=== PATIENT | female | born 1955 | race American Indian/Alaskan Native ===

== ENCOUNTER 2019-01-31 09:50 | Emergency (ER) | payer SELFPAY ==
[2019-01-31 10:47] LABS: Basophils # (Auto) 0.1 K/mm3 (0.0-0.1); Basophils % (Auto) 0.7 % (0.0-1.8); Eosinophils % (Auto) 0.2 % (0.0-4.3); Hematocrit 42.9 % (30.3-42.9); Hemoglobin 14.4 gm/dl (10.1-14.3); Lymphocytes # (Auto) 2.4 K/mm3 (1.2-5.4); Lymphocytes % (Auto) 13.3 % (13.4-35.0); Mean Corpuscular HGB Conc 34 % (30-34); Mean Corpuscular Volume 87 fl (79-97); Monocytes # (Auto) 1.1 K/mm3 (0.0-0.8); Monocytes % (Auto) 6.4 % (0.0-7.3); Platelet Count 219 K/mm3 (140-440); Red Blood Count 4.95 M/mm3 (3.65-5.03); Red Cell Distribution Width 13.2 % (13.2-15.2)
[2019-01-31] MEDS ORDERED: ONDANSETRON 4 MG/2 ML INJ IV ONE (10:59)
[2019-01-31] MEDS ORDERED: SODIUM CHLORIDE 0.9% 1000 ML 1,000 ML IV ONE (10:59)
[2019-01-31] MEDS ORDERED: FAMOTIDINE 20 MG/2 ML INJ IV ONE (10:59)
[2019-01-31 11:20] LABS: Alanine Aminotransferase 12 units/L (7-56); BUN/Creatinine Ratio 14; Blood Urea Nitrogen 10 mg/dL (7-17); Calcium 10.4 mg/dL (8.4-10.2); Hemolysis Index 15
[2019-01-31 12:49] LABS: Bilirubin,Urine NEG (Negative); Blood,Urine NEG (Negative); Color,Urine Yellow (Yellow)
[2019-01-31 13:09] LABS: Bacteria,Urine 1+ /HPF (Negative); Calcium Oxalate Crystals,Urine 1+
--- NOTE | 2019-01-31 13:29 | Emergency Department Report ---
ED General Adult HPI - General Chief complaint: Nausea/Vomiting/Diarrhea Stated complaint: DIZZY/VOMITING/NAUSEA Time Seen by Provider: 01/31/19 10:53 Source: patient Mode of arrival: Ambulatory Limitations: No Limitations - History of Present Illness Initial comments: 63-year-old Chhaya female who is complaining of nausea vomiting dizziness when she stands. Patient states that approximate 5 days ago she started having some vertigo-like symptoms which she has had in the past however she no longer feels dizzy when she turns her head is only when she stands and she is continued to have vomiting. Patient states her symptoms no longer feel like her vertigo. Patient denies fevers neck stiffness sore throat. Patient does state that she has a vaginal discharge and believes she may have a yeast infection. Patient's has some mild urinary frequency. - Related Data Previous Rx's Medication Instructions Recorded Last Taken Type Ibuprofen [Motrin 400 MG tab] 400 mg PO Q8H PRN #30 tablet 12/24/14 Unknown Rx Fluconazole [Diflucan TAB] 150 mg PO ONCE #1 tablet 01/31/19 Unknown Rx Nitrofurantoin [place]/M-Cryst 100 mg PO Q12HR #14 capsule 01/31/19 Unknown Rx [Macrobid CAP] Ondansetron [Zofran Odt] 4 mg PO Q8HR #10 tab.rapdis 01/31/19 Unknown Rx Allergies Allergy/AdvReac Type Severity Reaction Status Date / Time acetaminophen Allergy Vomiting Verified 12/24/14 09:49 [From Darvocet-N] aspirin Allergy Rash Verified 12/24/14 09:49 propoxyphene HCl Allergy Vomiting Verified 12/24/14 09:49 [From Darvon] propoxyphene napsylate Allergy Vomiting Verified 12/24/14 09:49 [From Darvocet-N] Sulfa (Sulfonamide Allergy Vomiting Verified 12/24/14 09:49 Antibiotics) ED Review of Systems ROS: Stated complaint: DIZZY/VOMITING/NAUSEA Other details as noted in HPI Comment: All other systems reviewed and negative ED Past Medical Hx - Past Medical History Previous Medical History?: Yes Hx Hypertension: Yes - Surgical History Past Surgical History?: Yes Additional Surgical History: c sect x 2, tubal, hysterectomy - Social History Smoking Status: Never Smoker Substance Use Type: None - Medications Home Medications: Home Medications Medication Instructions Recorded Confirmed Last Taken Type Ibuprofen [Motrin 400 MG tab] 400 mg PO Q8H PRN #30 tablet 12/24/14 Unknown Rx Fluconazole [Diflucan TAB] 150 mg PO ONCE #1 tablet 01/31/19 Unknown Rx Nitrofurantoin [place]/M-Cryst 100 mg PO Q12HR #14 capsule 01/31/19 Unknown Rx [Macrobid CAP] Ondansetron [Zofran Odt] 4 mg PO Q8HR #10 tab.rapdis 01/31/19 Unknown Rx ED Physical Exam - General Limitations: No Limitations General appearance: alert, in no apparent distress - Head Head exam: Present: atraumatic, normocephalic - Eye Eye exam: Present: normal appearance - ENT ENT exam: Present: normal exam, mucous membranes moist - Neck Neck exam: Present: normal inspection - Respiratory Respiratory exam: Present: normal lung sounds bilaterally. Absent: respiratory distress, wheezes, rales, rhonchi - Cardiovascular Cardiovascular Exam: Present: regular rate, normal rhythm. Absent: systolic murmur, diastolic murmur, rubs, gallop - GI/Abdominal GI/Abdominal exam: Present: soft, normal bowel sounds. Absent: distended, tenderness, guarding, rebound - Extremities Exam Extremities exam: Present: normal inspection - Back Exam Back exam: Present: normal inspection - Neurological Exam Neurological exam: Present: alert, oriented X3 - Psychiatric Psychiatric exam: Present: normal affect, normal mood - Skin Skin exam: Present: warm, dry, intact, normal color. Absent: rash ED Course Vital Signs 01/31/19 10:08 Temperature 98.5 F Pulse Rate 73 Respiratory 16 Rate Blood Pressure 159/95 O2 Sat by Pulse 99 Oximetry ED Medical Decision Making - Lab Data Result diagrams: 01/31/19 10:27 01/31/19 10:27 Lab Results 01/31/19 01/31/19 01/31/19 Range/Units 10:27 10:27 11:27 WBC 17.8 H (4.5-11.0) K/mm3 RBC 4.95 (3.65-5.03) M/mm3 Hgb 14.4 H (10.1-14.3) gm/dl Hct 42.9 (30.3-42.9) % MCV 87 (79-97) fl MCH 29 (28-32) pg MCHC 34 (30-34) % RDW 13.2 (13.2-15.2) % Plt Count 219 (140-440) K/mm3 Lymph % (Auto) 13.3 L (13.4-35.0) % [place] % (Auto) 6.4 (0.0-7.3) % Eos % (Auto) 0.2 (0.0-4.3) % Baso % (Auto) 0.7 (0.0-1.8) % Lymph # 2.4 (1.2-5.4) K/mm3 [place] # 1.1 H (0.0-0.8) K/mm3 Eos # 0.0 (0.0-0.4) K/mm3 Baso # 0.1 (0.0-0.1) K/mm3 Seg Neutrophils % 79.4 H (40.0-70.0) % Seg Neutrophils # 14.2 H (1.8-7.7) K/mm3 Sodium 144 (137-145) mmol/L Potassium 3.8 (3.6-5.0) mmol/L Chloride 103.5 (98-107) mmol/L Carbon Dioxide 24 (22-30) mmol/L Anion Gap 20 mmol/L BUN 10 (7-17) mg/dL Creatinine 0.7 (0.7-1.2) mg/dL Estimated GFR > 60 ml/min BUN/Creatinine Ratio 14 % Glucose 123 H (65-100) mg/dL Calcium 10.4 H (8.4-10.2) mg/dL Total Bilirubin 0.50 (0.1-1.2) mg/dL AST 18 (5-40) units/L ALT 12 (7-56) units/L Alkaline Phosphatase 92 (35-129) units/L Total Protein 9.0 H (6.3-8.2) g/dL Albumin 5.0 (3.9-5) g/dL Albumin/Globulin Ratio 1.3 % Lipase (13-60) units/L Urine Color Yellow (Yellow) Urine Turbidity Slightly-cloudy (Clear) Urine pH 5.0 (5.0-7.0) Ur Specific [place] 1.023 (1.003-1.030) Urine Protein 30 mg/dl (Negative) mg/dL Urine Glucose (UA) Neg (Negative) mg/dL Urine Ketones 20 (Negative) mg/dL Urine Blood Neg (Negative) Urine Nitrite Neg (Negative) Urine Bilirubin Neg (Negative) Urine Urobilinogen 4.0 (<2.0) mg/dL Ur Leukocyte Esterase Mod (Negative) Urine WBC (Auto) 5.0 (0.0-6.0) /HPF Urine RBC (Auto) 1.0 (0.0-6.0) /HPF Urine Bacteria (Auto) 1+ (Negative) /HPF Calcium Oxalate [place] 1+ 01/31/19 Range/Units Unknown WBC (4.5-11.0) K/mm3 RBC (3.65-5.03) M/mm3 Hgb (10.1-14.3) gm/dl Hct (30.3-42.9) % MCV (79-97) fl MCH (28-32) pg MCHC (30-34) % RDW (13.2-15.2) % Plt Count (140-440) K/mm3 Lymph % (Auto) (13.4-35.0) % [place] % (Auto) (0.0-7.3) % Eos % (Auto) (0.0-4.3) % Baso % (Auto) (0.0-1.8) % Lymph # (1.2-5.4) K/mm3 [place] # (0.0-0.8) K/mm3 Eos # (0.0-0.4) K/mm3 Baso # (0.0-0.1) K/mm3 Seg Neutrophils % (40.0-70.0) % Seg Neutrophils # (1.8-7.7) K/mm3 Sodium (137-145) mmol/L Potassium (3.6-5.0) mmol/L Chloride (98-107) mmol/L Carbon Dioxide (22-30) mmol/L Anion Gap mmol/L BUN (7-17) mg/dL Creatinine (0.7-1.2) mg/dL Estimated GFR ml/min BUN/Creatinine Ratio % Glucose (65-100) mg/dL Calcium (8.4-10.2) mg/dL Total Bilirubin (0.1-1.2) mg/dL AST (5-40) units/L ALT (7-56) units/L Alkaline Phosphatase (35-129) units/L Total Protein (6.3-8.2) g/dL Albumin (3.9-5) g/dL Albumin/Globulin Ratio % Lipase 33 (13-60) units/L Urine Color (Yellow) Urine Turbidity (Clear) Urine pH (5.0-7.0) Ur Specific [place] (1.003-1.030) Urine Protein (Negative) mg/dL Urine Glucose (UA) (Negative) mg/dL Urine Ketones (Negative) mg/dL Urine Blood (Negative) Urine Nitrite (Negative) Urine Bilirubin (Negative) Urine Urobilinogen (<2.0) mg/dL Ur Leukocyte Esterase (Negative) Urine WBC (Auto) (0.0-6.0) /HPF Urine RBC (Auto) (0.0-6.0) /HPF Urine Bacteria (Auto) (Negative) /HPF Calcium Oxalate Crystal - Medical Decision Making She was hydrated and given antiemetics and she is feeling much improved at the end of the patient's ER visit. In evaluating the patient's laboratory studies she does appear to be hemoconcentrated. Patient was vomiting at the time that the labs were drawn and her white count elevation likely secondary to emargination. Patient has a mild UTI be treated. Patient also has some ketonuria which supports the fact that her dizziness is no longer likely from her vertigo is more likely from dehydration. Critical care attestation.: If time is entered above; I have spent that time in minutes in the direct care of this critically ill patient, excluding procedure time. ED Disposition Clinical Impression: Mild dehydration UTI (urinary tract infection) Qualifiers: Urinary tract infection type: acute cystitis Hematuria presence: without hematuria Qualified Code(s): N30.00 - Acute cystitis without hematuria Nausea & vomiting Qualifiers: Vomiting type: unspecified Vomiting Intractability: non-intractable Qualified Code(s): R11.2 - Nausea with vomiting, unspecified Disposition: DC-01 TO HOME OR SELFCARE Is pt being admited?: No Does the pt Need Aspirin: No Condition: Stable Instructions: Dehydration (ED), Urinary Tract Infection in Women (ED), Fluconazole (By mouth) Referrals: PRIMARY CARE, [Primary Care Provider] - 3-5 Days Time of Disposition: 13:28
[2019-01-31 13:46] VITALS: BP 188/87
== END 2019-01-31 13:47 | disposition home or self-care (01) ==
LOC: ED 09:50
DX: N39.0 Urinary tract infection, site not specified (principal); E86.0 Dehydration; R11.2 Nausea with vomiting, unspecified
CPT/HCPCS: 36415; 80053; 81001; 83690; 85025; 96361; 96374; 96375; 99283; J2405; J7030

== ENCOUNTER 2019-05-18 07:20 | Emergency (ER) | payer OTHER ==
[2019-05-18] MEDS ORDERED: PROMETHAZINE 25 MG TAB PO ONE (08:49)
--- NOTE | 2019-05-18 09:12 | Emergency Department Report ---
{null, ED General Adult HPI - General Chief complaint: Nausea/Vomiting/Diarrhea Stated complaint: N/V Source: patient Mode of arrival: Ambulatory Limitations: No Limitations - History of Present Illness Initial comments: This is a pleasant 63-year-old female who presents the emergency department with a chief complaint that her vertigo is acting up. She reports a history of vertigo that will be intermittent and states this has been ongoing for the past 3 days. She states the dizziness is described as the room spinning around her and usually worse with certain movements. She also reports this is causing her to have nausea and vomiting and she has not been eating much since this started. She also reports an unassociated left-sided lower back pain with no radiation. Pain is worse with movement. She denies any associated fever, chills, night sweats, headache, dizziness, blurry vision, chest pain, shortness of breath, cough, saddle anesthesia, urinary or bowel incontinence, urinary retention, dysuria, frequency, urgency, hematuria or any other associated symptoms. - Related Data Previous Rx's Medication Instructions Recorded Last Taken Type Ibuprofen [Motrin 400 MG tab] 400 mg PO Q8H PRN #30 tablet 12/24/14 Unknown Rx Fluconazole [Diflucan TAB] 150 mg PO ONCE #1 tablet 01/31/19 Unknown Rx Nitrofurantoin [place]/M-Cryst 100 mg PO Q12HR #14 capsule 01/31/19 Unknown Rx [Macrobid CAP] Ondansetron [Zofran Odt] 4 mg PO Q8HR #10 tab.rapdis 01/31/19 Unknown Rx Ciprofloxacin HCl [Ciprofloxacin 500 mg PO BID #14 tablet 05/18/19 Unknown Rx TAB] Promethazine [Phenergan] 25 mg PO Q6HR PRN #30 tab 05/18/19 Unknown Rx Allergies Allergy/AdvReac Type Severity Reaction Status Date / Time acetaminophen Allergy Vomiting Verified 12/24/14 09:49 [From Darvocet-N] aspirin Allergy Rash Verified 12/24/14 09:49 propoxyphene HCl Allergy Vomiting Verified 12/24/14 09:49 [From Darvon] propoxyphene napsylate Allergy Vomiting Verified 12/24/14 09:49 [From Darvocet-N] Sulfa (Sulfonamide Allergy Vomiting Verified 12/24/14 09:49 Antibiotics) ED Review of Systems ROS: Stated complaint: N/V Other details as noted in HPI Comment: All other systems reviewed and negative Constitutional: denies: chills, fever Eyes: denies: eye pain, eye discharge, vision change ENT: denies: ear pain, throat pain Respiratory: denies: cough, shortness of breath, wheezing Cardiovascular: denies: chest pain, palpitations Endocrine: no symptoms reported Gastrointestinal: denies: abdominal pain, nausea, diarrhea Genitourinary: denies: urgency, dysuria, discharge Musculoskeletal: denies: back pain, joint swelling, arthralgia Skin: denies: rash, lesions Neurological: denies: headache, weakness, paresthesias Psychiatric: denies: anxiety, depression Hematological/Lymphatic: denies: easy bleeding, easy bruising ED Past Medical Hx - Past Medical History Previous Medical History?: Yes Hx Hypertension: Yes - Surgical History Past Surgical History?: Yes Additional Surgical History: c sect x 2, tubal, hysterectomy - Social History Smoking Status: Never Smoker Substance Use Type: None - Medications Home Medications: Home Medications Medication Instructions Recorded Confirmed Last Taken Type Ibuprofen [Motrin 400 MG tab] 400 mg PO Q8H PRN #30 tablet 12/24/14 Unknown Rx Fluconazole [Diflucan TAB] 150 mg PO ONCE #1 tablet 01/31/19 Unknown Rx Nitrofurantoin [place]/M-Cryst 100 mg PO Q12HR #14 capsule 01/31/19 Unknown Rx [Macrobid CAP] Ondansetron [Zofran Odt] 4 mg PO Q8HR #10 tab.rapdis 01/31/19 Unknown Rx Ciprofloxacin HCl [Ciprofloxacin 500 mg PO BID #14 tablet 05/18/19 Unknown Rx TAB] Promethazine [Phenergan] 25 mg PO Q6HR PRN #30 tab 05/18/19 Unknown Rx ED Physical Exam - General Limitations: No Limitations General appearance: alert, in no apparent distress - Head Head exam: Present: atraumatic, normocephalic - Eye Eye exam: Present: normal appearance, PERRL, EOMI Pupils: Present: normal accommodation - ENT ENT exam: Present: normal exam, normal orophraynx, mucous membranes moist, normal external ear exam, other (When I lay the patient flat and turned her head to the left she felt symptoms of vertigo when I returned her to a seated position the symptoms resolved) - Neck Neck exam: Present: normal inspection, full ROM. Absent: tenderness, meningismus - Respiratory Respiratory exam: Present: normal lung sounds bilaterally. Absent: respiratory distress, wheezes, rales, rhonchi, stridor, chest wall tenderness - Cardiovascular Cardiovascular Exam: Present: regular rate, normal rhythm, normal heart sounds. Absent: systolic murmur, diastolic murmur, rubs, gallop - GI/Abdominal GI/Abdominal exam: Present: soft, normal bowel sounds. Absent: distended, tenderness, guarding, rebound, rigid - Extremities Exam Extremities exam: Present: normal inspection, full ROM, normal capillary refill. Absent: tenderness, calf tenderness (negative vladimir sign bilaterally ) - Back Exam Back exam: Present: normal inspection, full ROM. Absent: tenderness, CVA tenderness (R), CVA tenderness (L) - Neurological Exam Neurological exam: Present: alert, oriented X3, normal gait - Psychiatric Psychiatric exam: Present: normal affect, normal mood - Skin Skin exam: Present: warm, dry, intact, normal color. Absent: rash ED Course Vital Signs 05/18/19 07:24 Temperature 98.9 F Pulse Rate 113 H Respiratory 20 Rate Blood Pressure 158/95 O2 Sat by Pulse 98 Oximetry ED Medical Decision Making - Lab Data Result diagrams: 05/18/19 09:05 05/18/19 09:05 Lab Results 05/18/19 05/18/19 05/18/19 Range/Units 09:05 09:05 09:28 WBC 16.6 H (4.5-11.0) K/mm3 RBC 4.59 (3.65-5.03) M/mm3 Hgb 13.1 (10.1-14.3) gm/dl Hct 39.6 (30.3-42.9) % MCV 86 (79-97) fl MCH 29 (28-32) pg MCHC 33 (30-34) % RDW 13.5 (13.2-15.2) % Plt Count 234 (140-440) K/mm3 Lymph % (Auto) 15.2 (13.4-35.0) % [place] % (Auto) 7.0 (0.0-7.3) % Eos % (Auto) 0.1 (0.0-4.3) % Baso % (Auto) 0.5 (0.0-1.8) % Lymph # 2.5 (1.2-5.4) K/mm3 [place] # 1.2 H (0.0-0.8) K/mm3 Eos # 0.0 (0.0-0.4) K/mm3 Baso # 0.1 (0.0-0.1) K/mm3 Seg Neutrophils % 77.2 H (40.0-70.0) % Seg Neutrophils # 12.8 H (1.8-7.7) K/mm3 Sodium 142 (137-145) mmol/L Potassium 4.1 (3.6-5.0) mmol/L Chloride 102.0 (98-107) mmol/L Carbon Dioxide 21 L (22-30) mmol/L Anion Gap 23 mmol/L BUN 10 (7-17) mg/dL Creatinine 0.7 (0.7-1.2) mg/dL Estimated GFR > 60 ml/min BUN/Creatinine Ratio 14 % Glucose 113 H (65-100) mg/dL Calcium 10.0 (8.4-10.2) mg/dL Total Bilirubin 0.60 (0.1-1.2) mg/dL AST 20 (5-40) units/L ALT 11 (7-56) units/L Alkaline Phosphatase 81 (35-129) units/L Total Protein 8.5 H (6.3-8.2) g/dL Albumin 4.6 (3.9-5) g/dL Albumin/Globulin Ratio 1.2 % Urine Color Yellow (Yellow) Urine Turbidity Slightly-cloudy (Clear) Urine pH 6.0 (5.0-7.0) Ur Specific [place] 1.020 (1.003-1.030) Urine Protein 30 mg/dl (Negative) mg/dL Urine Glucose (UA) Neg (Negative) mg/dL Urine Ketones 20 (Negative) mg/dL Urine Blood Neg (Negative) Urine Nitrite Neg (Negative) Urine Bilirubin Neg (Negative) Urine Urobilinogen 4.0 (<2.0) mg/dL Ur Leukocyte Esterase Lg (Negative) Urine WBC (Auto) 57.0 H (0.0-6.0) /HPF Urine RBC (Auto) 2.0 (0.0-6.0) /HPF U Epithel Cells (Auto) 1.0 (0-13.0) /HPF Urine Mucus 3+ /HPF - Medical Decision Making Patient's labs returned showing elevated white blood cell count but were other ho relatively normal. Urine was consistent with urinary tract infection. Due to the fact the patient did have some pain in the left side of her lower back although no significant CVA tenderness we will treat her for pyelonephritis. We did give an injection of Rocephin in the emergency department and will send her home with Cipro Floxin to treat a suspected complicated UTI. Patient had no colicky pain and again no significant CVA tenderness making my suspicion of an infected kidney stone less likely. Her symptoms of vertigo resolved in the emergency department. I will send her home with promethazine since this seemed to help with her vertigo symptoms. I suspect this is likely consistent with benign paroxysmal positional vertigo and have a low suspicion of a posterior stroke due to the easily reproducible symptoms. Patient had no ataxia on her exam with a normal [id number] and [id number] and normal steady gait when ambulating. I recommended outpatient follow-up with her primary care doctor. Initially when she arrived to the emergency department her heart rate was elev ated at 113 however when I rechecked it it was 68 with a pulse ox of 100% on room air which is normal. She had no fever. She was instructed to return to emerge department any change or worsening symptoms. She verbalized understanding of the diagnosis, treatment plan and follow-up instructions and all of her questions were answered. - Differential Diagnosis BPPV, pyelonehpritis, muscel strain, sepsis Critical care attestation.: If time is entered above; I have spent that time in minutes in the direct care of this critically ill patient, excluding procedure time. ED Disposition Clinical Impression: Acute pyelonephritis BPPV (benign paroxysmal positional vertigo) Qualifiers: Laterality: left Qualified Code(s): H81.12 - Benign paroxysmal vertigo, left ear Disposition: DC-01 TO HOME OR SELFCARE Is pt being admited?: No Condition: Stable Instructions: Benign Paroxysmal Positional Vertigo (ED), Urinary Tract Infect ion in Women (ED) Prescriptions: Ciprofloxacin HCl [Ciprofloxacin TAB] 500 mg PO BID #14 tablet Promethazine [Phenergan] 25 mg PO Q6HR PRN #30 tab PRN Reason: dizziness Referrals: PRIMARY CARE, [Primary Care Provider] - 3-5 Days Forms: Work/School Release Form(ED) Time of Disposition: 10:42 }
[2019-05-18 09:37] LABS: Basophils # (Auto) 0.1 K/mm3 (0.0-0.1); Basophils % (Auto) 0.5 % (0.0-1.8); Eosinophils % (Auto) 0.1 % (0.0-4.3); Hematocrit 39.6 % (30.3-42.9); Hemoglobin 13.1 gm/dl (10.1-14.3); Lymphocytes # (Auto) 2.5 K/mm3 (1.2-5.4); Lymphocytes % (Auto) 15.2 % (13.4-35.0); Mean Corpuscular HGB Conc 33 % (30-34); Mean Corpuscular Volume 86 fl (79-97); Monocytes # (Auto) 1.2 K/mm3 (0.0-0.8); Platelet Count 234 K/mm3 (140-440); Red Blood Count 4.59 M/mm3 (3.65-5.03); Red Cell Distribution Width 13.5 % (13.2-15.2)
[2019-05-18 09:49] LABS: Bilirubin,Urine NEG (Negative); Blood,Urine NEG (Negative); Color,Urine Yellow (Yellow); Mucus,Urine 3+ /HPF
[2019-05-18 10:00] LABS: Alanine Aminotransferase 11 units/L (7-56); Albumin 4.6 g/dL (3.9-5); BUN/Creatinine Ratio 14; Blood Urea Nitrogen 10 mg/dL (7-17); Hemolysis Index 18
[2019-05-18] MEDS ORDERED: cefTRIAXone/NS 2 GM/100 ML 2 GM/100 ML BAG IV ONE (10:12)
[2019-05-18] MEDS ORDERED: LIDOCAINE-MPF (1%) 10 MG/1 ML VIAL 5 ML INFILTRATI ONE (10:16)
[2019-05-18 10:37] VITALS: BP 159/87
== END 2019-05-18 10:48 | disposition home or self-care (01) ==
LOC: ED 07:20
DX: N10 Acute pyelonephritis (principal); H81.10 Benign paroxysmal vertigo, unspecified ear; I10 Essential (primary) hypertension; Z79.899 Other long term (current) drug therapy; Z79.1 Long term (current) use of non-steroidal anti-inflammatories (NSAID); Z88.8 Allergy status to other drugs, medicaments and biological substances; Z98.890 Other specified postprocedural states; Z98.51 Tubal ligation status; Z90.710 Acquired absence of both cervix and uterus
CPT/HCPCS: 36415; 80053; 81001; 85025; 87086; 96372; 99283; J0696; Q0169

== ENCOUNTER 2021-07-12 08:28 | Emergency (ER) | payer MEDICARE ==
[2021-07-12 09:03] VITALS: BP 157/90
[2021-07-12] MEDS ORDERED: ONDANSETRON 4 MG ODT TAB PO ONE (09:03)
[2021-07-12] MEDS ORDERED: DEXAMETHASONE 4 MG TAB PO ONE (09:03)
[2021-07-12] MEDS ORDERED: KETOROLAC 10 MG TAB PO ONE (09:03)
[2021-07-12] MEDS ORDERED: CYCLOBENZAPRINE 10 MG TAB PO ONE (09:03)
[2021-07-12] MEDS ORDERED: oxyCODONE /ACETAMINOPHEN 5-325MG TAB PO ONE (09:04)
--- NOTE | 2021-07-12 10:05 | Emergency Department Report ---
ED Back Pain/Injury HPI - General Chief Complaint: Back Pain/Injury Stated Complaint: BACK PAIN Time Seen by Provider: 07/12/21 09:01 Source: patient Limitations: No Limitations - History of Present Illness Initial Comments: 65 yo black female with pmh of chronic back pain presents to the ed for evaluation of lower back pain. She states that she always has lower back pain, but the past 3 days, the pain has been significantly worse with a low grade fever on Thursday. She denies injury, trauma, abdominal pain, n/v, dysuria, and vaginal discharge. -: Gradual, days(s) (5) Similar Symptoms Previously: Yes Place: home Radiation: none Severity: severe Severity scale (0 -10): 10 Quality: aching Consistency: constant Improves With: none Worsens With: none Associated Symptoms: denies other symptoms - Related Data Previous Rx's Medication Instructions Recorded Last Taken Type Ibuprofen [Motrin 400 MG tab] 400 mg PO Q8H PRN #30 tablet 12/24/14 Unknown Rx Fluconazole (Nf) [Diflucan TAB] 150 mg PO ONCE #1 tablet 01/31/19 Unknown Rx Nitrofurantoin Benson/M-Cryst 100 mg PO Q12HR #14 capsule 01/31/19 Unknown Rx [Macrobid CAP] Ondansetron [Zofran Odt] 4 mg PO Q8HR #10 tab.rapdis 01/31/19 Unknown Rx Ciprofloxacin HCl [Ciprofloxacin 500 mg PO BID #14 tablet 05/18/19 Unknown Rx TAB] Promethazine [Phenergan] 25 mg PO Q6HR PRN #30 tab 05/18/19 Unknown Rx Cyclobenzaprine [Flexeril] 10 mg PO TID PRN #21 tab 07/12/21 Unknown Rx Lidocaine [Lidoderm] 1 each TP DAILY #10 patch 07/12/21 Unknown Rx Naproxen [Naprosyn] 500 mg PO BID #14 tab 07/12/21 Unknown Rx cephALEXin [Keflex] 500 mg PO Q12HR #14 cap 07/12/21 Unknown Rx Allergies Allergy/AdvReac Type Severity Reaction Status Date / Time acetaminophen Allergy Vomiting Verified 12/24/14 09:49 [From Darvocet-N] aspirin Allergy Rash Verified 12/24/14 09:49 propoxyphene HCl Allergy Vomiting Verified 12/24/14 09:49 [From Darvon] propoxyphene napsylate Allergy Vomiting Verified 12/24/14 09:49 [From Darvocet-N] Sulfa (Sulfonamide Allergy Vomiting Verified 12/24/14 09:49 Antibiotics) ED Review of Systems ROS: Stated complaint: BACK PAIN Other details as noted in HPI Comment: All other systems reviewed and negative Constitutional: fever. denies: chills Respiratory: denies: shortness of breath Cardiovascular: denies: chest pain, palpitations Gastrointestinal: denies: abdominal pain, nausea, vomiting, diarrhea, hematemesis, melena, hematochezia Genitourinary: denies: urgency, dysuria, frequency, hematuria, discharge Musculoskeletal: back pain Skin: denies: rash, lesions Neurological: denies: headache, weakness, numbness ED Past Medical Hx - Past Medical History Hx Hypertension: Yes - Surgical History Additional Surgical History: c sect x 2, tubal, hysterectomy - Social History Smoking Status: Never Smoker Substance Use Type: None - Medications Home Medications: Home Medications Medication Instructions Recorded Confirmed Last Taken Type Ibuprofen [Motrin 400 MG tab] 400 mg PO Q8H PRN #30 tablet 12/24/14 Unknown Rx Fluconazole (Nf) [Diflucan TAB] 150 mg PO ONCE #1 tablet 01/31/19 Unknown Rx Nitrofurantoin Benson/M-Cryst 100 mg PO Q12HR #14 capsule 01/31/19 Unknown Rx [Macrobid CAP] Ondansetron [Zofran Odt] 4 mg PO Q8HR #10 tab.rapdis 01/31/19 Unknown Rx Ciprofloxacin HCl [Ciprofloxacin 500 mg PO BID #14 tablet 05/18/19 Unknown Rx TAB] Promethazine [Phenergan] 25 mg PO Q6HR PRN #30 tab 05/18/19 Unknown Rx Cyclobenzaprine [Flexeril] 10 mg PO TID PRN #21 tab 07/12/21 Unknown Rx Lidocaine [Lidoderm] 1 each TP DAILY #10 patch 07/12/21 Unknown Rx Naproxen [Naprosyn] 500 mg PO BID #14 tab 07/12/21 Unknown Rx cephALEXin [Keflex] 500 mg PO Q12HR #14 cap 07/12/21 Unknown Rx ED Physical Exam - General Limitations: No Limitations General appearance: alert, in no apparent distress - Head Head exam: Present: atraumatic, normocephalic - Eye Eye exam: Present: normal appearance. Absent: conjunctival injection - Neck Neck exam: Present: normal inspection, full ROM. Absent: tenderness, lymphadenopathy - Respiratory Respiratory exam: Present: normal lung sounds bilaterally. Absent: respiratory distress, wheezes, rales, rhonchi, stridor, chest wall tenderness, accessory muscle use - Cardiovascular Cardiovascular Exam: Present: tachycardia, normal heart sounds - GI/Abdominal GI/Abdominal exam: Present: soft, normal bowel sounds. Absent: distended, tenderness, guarding, rebound, rigid - Extremities Exam Extremities exam: Present: normal inspection, normal capillary refill. Absent: pedal edema, joint swelling, calf tenderness - Back Exam Back exam: Present: normal inspection, tenderness (bilateral lower). Absent: CVA tenderness (R), CVA tenderness (L), vertebral tenderness - Neurological Exam Neurological exam: Present: alert, oriented X3 - Psychiatric Psychiatric exam: Present: normal affect, normal mood - Skin Skin exam: Present: warm, dry, intact, normal color ED Course Vital Signs 07/12/21 09:02 Temperature 99.3 F Pulse Rate 112 H Respiratory 18 Rate Blood Pressure 157/90 O2 Sat by Pulse 99 Oximetry ED Medical Decision Making - Medical Decision Making 65 yo black female with pmh of chronic back pain presents to the ed for evaluation of lower back pain. She states that she always has lower back pain, but the past 3 days, the pain has been significantly worse with a low grade fever on Thursday. She denies injury, trauma, abdominal pain, n/v, dysuria, and vaginal discharge. UA positive for UTI, and patient will be treated with 7 day coarse of Keflex along with lidoderm patch and flexeril for back pain. She is advised to take medications as prescribed and follow up with pcp if no improvement or worsening symptoms. She verbalized understanding of and agreement with plan of care. Critical care attestation.: If time is entered above; I have spent that time in minutes in the direct care of this critically ill patient, excluding procedure time. ED Disposition Clinical Impression: Back pain Qualifiers: Back pain location: low back pain Chronicity: chronic Back pain laterality: bilateral Sciatica presence: without sciatica Qualified Code(s): M54.50 - Low back pain, unspecified UTI (urinary tract infection) Qualifiers: Urinary tract infection type: acute cystitis Hematuria presence: without hematuria Qualified Code(s): N30.00 - Acute cystitis without hematuria Disposition: HOME / SELF CARE / HOMELESS Is pt being admited?: No Does the pt Need Aspirin: No Condition: Stable Instructions: Urinary Tract Infection, Adult, [id number], What You Need to Know About Chronic Back Pain, Chronic Back Pain, [id number] Additional Instructions: Take medications as prescribed. Follow-up with primary care provider if no improvement or worsening symptoms. Return to the emergency department as needed. Prescriptions: Cyclobenzaprine [Flexeril] 10 mg PO TID PRN #21 tab PRN Reason: Muscle Spasm cephALEXin [Keflex] 500 mg PO Q12HR #14 cap Lidocaine [Lidoderm] 1 each TP DAILY #10 patch Naproxen [Naprosyn] 500 mg PO BID #14 tab Referrals: LISA CH MD [Referring] - 3-5 Days Time of Disposition: 10:49
[2021-07-12 10:43] LABS: Bacteria,Urine 1+ /HPF (Negative); Bilirubin,Urine NEG (Negative); Blood,Urine NEG (Negative); Color,Urine Yellow (Yellow); Mucus,Urine 2+ /HPF
== END 2021-07-12 11:53 | disposition home or self-care (01) ==
LOC: ED 08:28
DX: M54.50 Low back pain, unspecified (principal); N39.0 Urinary tract infection, site not specified; I10 Essential (primary) hypertension; Z90.710 Acquired absence of both cervix and uterus; Z98.51 Tubal ligation status; Z88.6 Allergy status to analgesic agent; Z88.8 Allergy status to other drugs, medicaments and biological substances; Z79.899 Other long term (current) drug therapy
CPT/HCPCS: 81001; 87086; 99283; J8540; J3490; Q0162